=== PATIENT | female | born 1980 | race Caucasian/White ===

== ENCOUNTER 2016-10-22 23:25 | Emergency (ER) | payer OTHER | END 2016-10-23 01:34 | disposition home or self-care (01) | LOC: ER 23:25 | DX: K27.9 Peptic ulcer, site unspecified, unspecified as acute or chronic, without hemorrhage or perforation (principal); F41.9 Anxiety disorder, unspecified; Z98.51 Tubal ligation status | CPT/HCPCS: 36415 ==

== ENCOUNTER 2016-12-06 15:43 | Emergency (ER) | payer OTHER | END 2016-12-06 17:20 | disposition home or self-care (01) | LOC: ER 15:43 | DX: K80.20 Calculus of gallbladder without cholecystitis without obstruction (principal); F41.9 Anxiety disorder, unspecified; Z98.51 Tubal ligation status | CPT/HCPCS: 36415; 96374; J1885 ==